=== PATIENT | male | born 1950 | race Caucasian/White ===

== ENCOUNTER 2018-01-12 11:05 | Inpatient (IN) | payer OTHER ==
[~2018-01-12] VITALS: Ht 170.2 cm; Wt 113.4 kg
[~2018-01-12 11:05] MED LIST: ACULAR5 ML OPH; ADVAIR 100-501 EACH INH; ADVAIR DISKU 11 UNIT INH; ASPIRIN EC81 M1 PO; AZITHROMYCIN250 M1 PO; CIPRO500 M1 PO; DIAZEPAM5 M1 PO; DICLOFENAC SODI75 M2 PO; DICYCLOMINE HCL20 M1; DOCUSATE SODIU100 M3 PO; DOK100 M1 PO; FLEXERIL10 MG PO; FLOMAX0.4 M1 PO; FLONASE ALLERG9.9 ML NASB; FLONASE120 SPRAY/ NASB; LEVSIN-SL0.125 MG SL; LIBRAX CAPSULE1 EACH PO; LOPRESSOR 25MG25 MG PO; MEDROL4 M2 PO; METOPROLOL TART25 M1 PO; OMEPRAZOLE40 M1 PO; OXYCODONE-ACET1 EACH PO; PERCOCET 325 MG1 TA2 PO; PREDNISONE 20MG20 MG PO; REGLAN10 M1 PO; TOBRAMYCIN-DEXAM5 ML OPH; VALIUM5 M1 PO; VENTOLIN HFA18 GM INH
--- NOTE | 2018-01-12 11:48 | ED NEURO DEFICIT/STROKE ---
History of Present Illness General Chief Complaint: General Adult Stated Complaint: LEFT HAND AND FACE TINGLING Source: patient, family Exam Limitations: no limitations Allergies Coded Allergies: NO KNOWN ALLERGIES (08/18/16) Reconcile Medications Albuterol Sulfate (Ventolin Hfa) 90 MCG HFA.AER.AD 2 PUF INH Q4-6 PRN PRN SHORTNESS OF BREATH (Reported) Aspirin (Ecotrin*) 81 MG TABLET.DR 1 TAB PO DAILY HEART/BLOOD (Reported) Diazepam 5 MG TABLET 1 TAB PO QHS BLADDER (Reported) Fluticasone Propionate (Flonase Allergy Relief) 50 MCG/ACTUATION SPRAY.SUSP 1 SPRAY NASB BID ALLERGIES (Reported) Fluticasone-Salmeterol (Advair 100-50 Diskus) 100 MCG-50 MCG/DOSE BLST.W.DEV 1 PUF INH BID ASTHMA (Reported) Librax (Librax Capsule) 5 MG-2.5 MG CAPSULE 1-2 CAP PO TID PRN IBS (Reported) Metoprolol Tartrate 25 MG TABLET 0.5 TAB PO BID HEART (Reported) Omeprazole 40 MG CAPSULE.DR 1 CAP PO QAM GI (Reported) Tamsulosin HCl (Flomax) 0.4 MG CAP.ER.24H 2 CAP PO DAILY PROSTATE (Reported) Triage Nurses Notes Reviewed? yes Onset: Abrupt Duration: minute(s): Timing: single episode today Severity: moderate HPI: 67YO MALE with hx of HTN on ASA 81mg, pericarditis x 3 presents to ED complaining of episode of numbness to left hand beginning about 10 minutes prior to arrival, approximately 1045 this AM. Patient also experienced tongue numbness and tingling sensation. His symptoms lasted 10-15 minutes, patient states her symptoms have currently completely resolved. Patient is complaining of mild frontal headache which just started described as 2/10. Patient does report history of right pinky numbness which is been constant for the past month. Patient had a brief episode of chest pain 4 days ago described as central, sharp stabbing pain which resolved after a few minutes. Patient denies visual changes, difficulty with word finding, weakness, abdominal pain, vomiting , fevers. (Karen GRAVES,Delfina Thrasher) Vital Signs & Intake/Output Vital Signs & Intake/Output Vital Signs Date Time Temp Pulse Resp B/P B/P Pulse O2 O2 Flow FiO2 Mean Ox Delivery Rate 01/12 1305 98.5 54 20 128/66 95 Room Air 01/12 1218 98.3 60 18 124/66 95 Room Air 01/12 1131 97.9 64 18 152/85 97 Room Air (Espreanza MATHIS,Lane Campos) Past History Travel History Traveled to [place] past 21 day No Medical History Any Pertinent Medical History? 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 No (Karen GRAVES,Delfina Thrasher) Review of Systems Review of Systems Constitutional: Reports: no symptoms. EENTM: Reports: see HPI. Respiratory: Reports: no symptoms. Cardiovascular: Reports: see HPI. GI: Reports: no symptoms. Genitourinary: Reports: no symptoms. Musculoskeletal: Reports: no symptoms. Skin: Reports: no symptoms. Neurological/Psychological: Reports: see HPI. Hematologic/Endocrine: Reports: no symptoms. Immunologic/Allergic: Reports: no symptoms. All Other Systems: Reviewed and Negative (Delfina Mello) Physical Exam Physical Exam General Appearance: well developed/nourished, no apparent distress, alert, awake Head: atraumatic, normal appearance Eyes: Bilateral: normal appearance, PERRL, EOMI. Ears, Nose, Throat: moist mucous membrane, hearing grossly normal, pharynx normal Neck: normal inspection, supple, full range of motion Respiratory: normal breath sounds, no respiratory distress, lungs clear Cardiovascular: regular rate/rhythm, normal peripheral pulses Peripheral Pulses: 2+ radial (R), 2+ radial (L) Gastrointestinal: normal bowel sounds, soft, non-tender, no organomegaly Back: normal inspection, normal range of motion Extremities: normal range of motion Psychiatric: awake, alert, oriented x 3 Cranial Nerves: normal hearing, normal speech, PERRL, CN II-XII intact Coordination/Gait: normal finger to nose, normal gait Motor/Sensory: no motor/sensory deficits Skin: intact, normal color, warm/dry Core Measures CVA/TIA Diagnosis: Yes NIH Stroke Scale NIH Stroke Scale Response Value Level of Consciousness alert 0 LOC Questions answers both correctly 0 LOC Commands obeys both correctly 0 Best Gaze normal 0 Visual Shipman no visual loss 0 Facial Paresis normal 0 Motor Arm - Left no drift 0 Motor Arm - Right no drift 0 Motor Leg - Left no drift 0 Motor Leg - Right no drift 0 Limb Ataxia no ataxia 0 Sensory normal 0 Best Language no aphasia 0 Dysarthria normal articulation 0 Extinction and Inattention no neglect 0 Total 0 Date Last Known Well: 01/12/18 Time Last Known Well: 1044 Symptom Start Date: 01/12/18 Symptom Start Time: 1044 Reason tPA not ordered Medical Contraindication Swallow Evaluation Pass Swallow eval date 01/12/18 Swallow eval time 1342 Sepsis Present: No Sepsis Focused Exam Completed? No (Karen GRAVES,Delfina Thrasher) Progress Differential Diagnosis: Mata's Palsy, electrolyte imbalance, encephalitis, intracranial Hem., intracranial mass/tumor, stroke, subarachnoid Hem., TIA Diagnostic Imaging: Viewed by Me: CT Scan. Discussed w/RAD: CT Scan. Radiology Impression: PATIENT: TAYA GILBERT PRESENT AGE: 67 PATIENT ACCOUNT NO: [id number] : 52 LOCATION: [facility] ORDERING PHYSICIAN: Delfina GRAVES SERVICE DATE: 01/12/18-1143 EXAM TYPE: CAT - CT HEAD WO IV CONTRAST EXAMINATION: CT HEAD WITHOUT CONTRAST CLINICAL INFORMATION: Left hand and face numbness. COMPARISON: CT scan of the head 06/15/2013. TECHNIQUE: Contiguous axial imaging was performed from the skull base to vertex without intravenous administration of contrast. DLP: 614.25 mGy-cm FINDINGS: There is no evidence of a definite acute intracranial hemorrhage or territorial infarction. There are areas of low-attenuation the periventricular and subcortical white matter, consistent with chronic microvascular ischemic changes. There is a new area of low attenuation in the anterior left gates radiata, consistent with an area of ischemia which is age- indeterminate. No abnormal mass effect or midline shift is seen. Olivera to white matter differentiation is well preserved. No extra-axial fluid collections are identified. The ventricles and sulci are commensurately prominent consistent with mild diffuse volume loss. The osseous structures and soft tissues are normal. There is trace fluid at the right mastoid tip. The study redemonstrates pansinus mucoperiosteal thickening which is most severe in the right maxillary, ethmoid and sphenoid sinuses. IMPRESSION: 1. There are no acute bleeds or territorial infarcts. There is an area of low attenuation in the left anterior gates radiata, consistent with ischemia which is age-indeterminate. 2. There is diffuse volume loss and there are chronic microvascular ischemic changes. 3. 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 DICTATED BY: Konstantin Huerta MD DATE/TIME DICTATED:01/12/181217 CODING CLERK:FREDO DATE/TIME TRANSCRIBED:01/12/181217 CONFIDENTIAL, DO NOT COPY WITHOUT APPROPRIATE AUTHORIZATION. <Electronically signed in Other Vendor System> SIGNED BY: Konstantin Huerta MD 01/12/18 1227 Initial ED EKG: SINUS RHYTHM @61BPM, LVH Prior EKG: unchanged (08/07/16) (Karen GRAVES,Delfina Thrasher) Plan of Care: Orders Procedure Date/time Status Heart Healthy Diet 01/12 D Active Patient Data 01/12 1339 Active Misc Message 01/12 1334 Active ED Holding Orders 01/12 1334 Active Admit to inpatient 01/12 1334 Active Vital Signs 01/12 1334 Active Code Status 01/12 1334 Active TROPONIN LEVEL 01/12 1143 Complete PARTIAL THROMBOPLASTIN TIME 01/12 1143 Complete PROTHROMBIN TIME 01/12 1143 Complete COMPREHENSIVE METABOLIC PANEL 01/12 1143 Complete CBC WITHOUT DIFFERENTIAL 01/12 1143 Complete EKG 01/12 1109 Active Laboratory Tests 01/12/18 1200: Anion Gap 13, Estimated GFR > 60, BUN/Creatinine Ratio 30.0 H, Glucose 125 H, Calcium 8.9, Total Bilirubin 1.2, AST 14 L, ALT 34, Alkaline Phosphatase 37, Troponin I < 0.01, Total Protein 6.5, Albumin 3.8, Globulin 2.7, Albumin/ Globulin Ratio 1.4, PT 11.7, INR 1.07, APTT 30, CBC w Diff NO MAN DIFF REQ, RBC 5.54, MCV 85.8, MCH 28.3, MCHC 32.9 L, RDW 14.4, MPV 8.3, Gran % 72.8, Lymphocytes % 15.3 L, Monocytes % 5.6, Eosinophils % 5.7 H, Basophils % 0.6, Absolute Granulocytes 4.8, Absolute Lymphocytes 1.0 L, Absolute Monocytes 0.4, Absolute Eosinophils 0.4, Absolute Basophils 0 Dr. Mata present to see and evaluate the patient in triage. I evaluated the patient and perform formal neurologic exam and Dr. Mata present to reevaluate the patient. Dr. Mata called a stroke alert. Patient taken to CAT scan. Spoke with Dr. Arguelles regarding this patient - ASA and observation of suspected TIA with further TIA workup. TPA is contraindicated given patient's NIH stroke scale of 0. CT scan is pending. CT scan shows area of likely old ischemia. Patient currently has no neurologic findings on physical exam. Given no evidence of acute intracranial hemorrhage patient was medicated with aspirin 325 mg. Case management recommend full admission for this patient. Dr. Mata spoke with Dr. Perez regarding this patient telemetry admission. (Karen GRAVES,Delfina Thrasher) Comments: 01/12/2018 1:20:25 PM I have discussed this patient's case with Dr. Perez. (Esperanza MATHIS,Lane Campos) Departure Departure Disposition: STILL A PATIENT Condition: Stable Clinical Impression Primary Impression: TIA (transient ischemic attack) Qualifiers: Transient cerebral ischemia type: unspecified Qualified Code: G45.9 - Transient cerebral ischemic attack, unspecified Referrals: Vasquez Norton MD (PCP/Family) Departure Forms: Customer Survey General Discharge Information Admission Note Spoke With: Panfilo Perez MD Documentation of Exam: Documentation of any treatments & extenuating circumstances including Concerns Regarding Discharge (functional status, medication knowledge or non-compliance, living conditions, etc.) that warrant an admission rather than observation: [TIA requiring neurology consult, further workup such as possible MRI, carotid Dopplers, echo, telemetry monitoring, repeat EKGs, repeat labs, premature discharge is unsafe] (Delfina Mello) PA/LICENSED LOAN OFFICER ASSISTANT Co-Sign Statement Statement: ED Attending supervision documentation- [X] I saw and evaluated the patient. I have also reviewed all the pertinent lab results and diagnostic results. I agree with the findings and the plan of care as documented in the PA's/LICENSED LOAN OFFICER ASSISTANT's documentation. Patient presents for evaluation of left facial droop that began prior to arrival. Physical examination reveals no focal neurologic deficit at this time. [] I have reviewed the ED Record and agree with the PA's/LICENSED LOAN OFFICER ASSISTANT's documentation. [] Additions or exceptions (if any) to the PAs/LICENSED LOAN OFFICER ASSISTANT's note and plan are summarized below: [] (Esperanza MATHIS,Lane Campos)
[2018-01-12 12:11] LABS: ABSOLUTE BASOPHIL COUNT 0 /CUMM (0.0-0.2); ABSOLUTE EOSINOPHIL COUNT 0.4 /CUMM (0.0-0.7); ABSOLUTE GRANULOCYTE CT 4.8 /CUMM (1.4-6.5); ABSOLUTE MONOCYTE COUNT 0.4 /CUMM (0.10-0.60); BASOPHIL % 0.6 % (0.0-2.0); EOSINOPHIL % 5.7 % (0-5); GRANULOCYTE % 72.8 % (42.2-75.2); HEMATOCRIT 47.6 % (42-52); MEAN CORPUSCULAR HGB 28.3 PG (27.0-31.0); MEAN CORPUSCULAR HGB CONC 32.9 G/DL (33.0-37.0); MEAN CORPUSCULAR VOLUME 85.8 FL (80.0-94.0); MEAN PLATELET VOLUME 8.3 FL (7.4-10.4); PLATELET COUNT 184 /CUMM (130-400); RBC DISTRIBUTION WIDTH 14.4 % (11.5-14.5); RED BLOOD CELL CT 5.54 /CUMM (4.70-6.10); WHITE BLOOD CELL COUNT 6.5 /CUMM (4.8-10.8)
[2018-01-12 12:19] LABS: PT 11.7 SEC (9.4-12.5); PTT 30 SEC (25-37)
--- NOTE | 2018-01-12 12:27 | CT SCAN REPORT ---
EXAMINATION: CT HEAD WITHOUT CONTRAST CLINICAL INFORMATION: Left hand and face numbness. COMPARISON: CT scan of the head 06/15/2013. TECHNIQUE: Contiguous axial imaging was performed from the skull base to vertex without intravenous administration of contrast. DLP: 614.25 mGy-cm FINDINGS: There is no evidence of a definite acute intracranial hemorrhage or territorial infarction. There are areas of low-attenuation the periventricular and subcortical white matter, consistent with chronic microvascular ischemic changes. There is a new area of low attenuation in the anterior left gates radiata, consistent with an area of ischemia which is age-indeterminate. No abnormal mass effect or midline shift is seen. Olivera to white matter differentiation is well preserved. No extra-axial fluid collections are identified. The ventricles and sulci are commensurately prominent consistent with mild diffuse volume loss. The osseous structures and soft tissues are normal. There is trace fluid at the right mastoid tip. The study redemonstrates pansinus mucoperiosteal thickening which is most severe in the right maxillary, ethmoid and sphenoid sinuses. IMPRESSION: 1. There are no acute bleeds or territorial infarcts. There is an area of low attenuation in the left anterior gates radiata, consistent with ischemia which is age-indeterminate. 2. There is diffuse volume loss and there are chronic microvascular ischemic changes. 3. 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
--- NOTE | 2018-01-12 14:44 | Cons- Neurology ---
General Information and HPI Consulting Request Date of Consult: 01/12/18 Requested By: Panfilo Perez MD Reason for Consult: Sudden numbness in the hand and tongue Source of Information: patient Exam Limitations: no limitations History of Present Illness: This is a pleasant 67-year-old man with known hypertension who today was driving his car when he suddenly felt development of new onset numbness in his hand and tongue on the left side. This persisted for about 15 minutes and then resolved on its own. He spoke to his primary care physician who recommended that he goes to be seen in the emergency room. In the emergency room his NIH stroke scale was 0. Therefore TPA was not given. He has remained stable without any new focal deficits since that point. He denies ever having an event like this or any other neurological symptoms in the past outside of some numbness in his right pinky. Admits to mild headache that is now subsiding too. Allergies/Medications Allergies: Coded Allergies: NO KNOWN ALLERGIES (08/18/16) Home Med List: Albuterol Sulfate (Ventolin Hfa) 90 MCG HFA.AER.AD 2 PUF INH Q4-6 PRN PRN SHORTNESS OF BREATH (Reported) Aspirin (Ecotrin*) 81 MG TABLET.DR 1 TAB PO DAILY HEART/BLOOD (Reported) Diazepam 5 MG TABLET 1 TAB PO QHS BLADDER (Reported) Fluticasone Propionate (Flonase Allergy Relief) 50 MCG/ACTUATION SPRAY.SUSP 1 SPRAY NASB BID ALLERGIES (Reported) Fluticasone-Salmeterol (Advair 100-50 Diskus) 100 MCG-50 MCG/DOSE BLST.W.DEV 1 PUF INH BID ASTHMA (Reported) Librax (Librax Capsule) 5 MG-2.5 MG CAPSULE 1-2 CAP PO TID PRN IBS (Reported) Metoprolol Tartrate 25 MG TABLET 0.5 TAB PO BID HEART (Reported) Omeprazole 40 MG CAPSULE.DR 1 CAP PO QAM GI (Reported) Tamsulosin HCl (Flomax) 0.4 MG CAP.ER.24H 2 CAP PO DAILY PROSTATE (Reported) Current Medications: Current Medications Sig/Vidal Start time Last Medication Dose Route Stop Time Status Admin Aspirin 0 .STK-MED ONE 01/12 1256 DC PO Aspirin 325 MG ONCE ONE 01/12 1245 DC 01/12 PO 01/12 1246 1253 Past History Travel History Traveled to [place] past 21 day No Medical History Neurological: radiculopathy radiculopathy EENT: NONE Cardiovascular: hypertension, pericarditis Respiratory: obstructive sleep apnea Gastrointestinal: GERD Hepatic: NONE Renal: benign prost hyperplasia Musculoskeletal: disk herniation Psychiatric: NONE Endocrine: NONE Blood Disorders: NONE 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 Other Medical Hx: none Surgical History Surgical History: none, lumbar laminectomy in 2015 at L2-3 Psychosocial History Services at Home: Home Health Aide (n/a) Exam & Diagnostic Data Vital Signs and I&O Vital Signs Date Time Temp Pulse Resp B/P B/P Pulse O2 O2 Flow FiO2 Mean Ox Delivery Rate 01/12 1408 98.5 53 20 137/70 97 Room Air 01/12 1305 98.5 54 20 128/66 95 Room Air 01/12 1218 98.3 60 18 124/66 95 Room Air 01/12 1131 97.9 64 18 152/85 97 Room Air Intake & Output 01/12 1600 01/12 0800 01/12 0000 Intake Total 0 Output Total 0 Balance 0 Intake, Oral 0 Output, Urine 0 Patient 235 lb Weight Physical Exam: General: The patient is in no distress. Pleasant and cooperative. MSE: Alert and oriented 3. Good attention and concentration. Good short-term memory and fund of knowledge reflected through our conversation. Language is fluent with good comprehension and repetition. Cardiovascular: S1 and S2 are normal, regular rate and rhythm, and normal pedal pulses. Vision: Fundoscopic exam does not reveal any abnormalties. Visual gonzalez are intact. Neurological: Extra ocular movements intact, AMPARO, face is symmetric, tongue midline, uvula raises equally in the midline, V1-V3 sensation to touch is intact and equal bilaterallty, sternocleidomastoid and trapezius are strong on both sides, muscles of mastication are strong. No dysarthria noted. Motor exam reveals no abnormality of strength. Power is 5-5 throughout the distribution distally and proximally. Sensory exam did not reveal any deficits to touch, temperature, vibration and proprioception. Reflexes are symmetric bilaterally. Cerebellar exam does not reveal any dysmetria. Rapid alternating movements are intact bilaterally. Gait is steady with normal base. Last 48 Hours of Lab Results: Laboratory Tests 01/12 1200 Chemistry Sodium (137 - 145 mmol/L) 144 Potassium (3.5 - 5.1 mmol/L) 4.1 Chloride (98 - 107 mmol/L) 107 Carbon Dioxide (22 - 30 mmol/L) 23 Anion Gap (5 - 16) 13 BUN (9 - 20 mg/dL) 30 H Creatinine (0.7 - 1.2 mg/dL) 1.0 Estimated GFR (>60 ml/min) > 60 BUN/Creatinine Ratio (7 - 25 %) 30.0 H Glucose (65 - 99 mg/dL) 125 H Calcium (8.4 - 10.2 mg/dL) 8.9 Total Bilirubin (0.2 - 1.3 mg/dL) 1.2 AST (17 - 59 U/L) 14 L ALT (21 - 72 U/L) 34 Alkaline Phosphatase (< 127 U/L) 37 Troponin I (<0.11 ng/ml) < 0.01 Total Protein (6.3 - 8.2 g/dL) 6.5 Albumin (3.5 - 5.0 g/dL) 3.8 Globulin (1.9 - 4.2 gm/dL) 2.7 Albumin/Globulin Ratio (1.1 - 2.2 %) 1.4 Coagulation PT (9.4 - 12.5 SEC) 11.7 INR (0.90 - 1.17) 1.07 APTT (25 - 37 SEC) 30 Hematology CBC w Diff NO MAN DIFF REQ WBC (4.8 - 10.8 /CUMM) 6.5 RBC (4.70 - 6.10 /CUMM) 5.54 Hgb (14.0 - 18.0 G/DL) 15.7 Hct (42 - 52 %) 47.6 MCV (80.0 - 94.0 FL) 85.8 MCH (27.0 - 31.0 PG) 28.3 MCHC (33.0 - 37.0 G/DL) 32.9 L RDW (11.5 - 14.5 %) 14.4 Plt Count (130 - 400 /CUMM) 184 MPV (7.4 - 10.4 FL) 8.3 Gran % (42.2 - 75.2 %) 72.8 Lymphocytes % (20.5 - 51.1 %) 15.3 L Monocytes % (1.7 - 9.3 %) 5.6 Eosinophils % (0 - 5 %) 5.7 H Basophils % (0.0 - 2.0 %) 0.6 Absolute Granulocytes (1.4 - 6.5 /CUMM) 4.8 Absolute Lymphocytes (1.2 - 3.4 /CUMM) 1.0 L Absolute Monocytes (0.10 - 0.60 /CUMM) 0.4 Absolute Eosinophils (0.0 - 0.7 /CUMM) 0.4 Absolute Basophils (0.0 - 0.2 /CUMM) 0 Imaging/Other Studies: IMPRESSION: 1. There are no acute bleeds or territorial infarcts. There is an area of low attenuation in the left anterior gates radiata, consistent with ischemia which is age-indeterminate. 2. There is diffuse volume loss and there are chronic microvascular ischemic changes. 3. 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 Assessment/Plan Assessment: This is a 67-year-old man presenting for first-time TIA. His CT is suggestive of extensive microvascular disease and possibly an old subcortical infarct. At the moment he does not have any clear deficits. Recommendations: 1. Obtain MRI brain. 2. Obtain carotid duplex and echo cardiogram. 3. Obtain lipids, TSH, B12, and hemoglobin A1c. 4. Switch aspirin to Plavix. 5. Start atorvastatin 80 mg daily. 6. Sitters starting an LAURIE inhibitor for his blood pressure. 7. Telemetry to rule out atrial fibrillation. YC Consult Acknowledgment - Thank you for your consult request.
--- NOTE | 2018-01-12 15:14 | History & Physical ---
Crystal Christine MD 01/12/18 1514: General Information and HPI MD Statement: I have seen and personally examined TAYA GILBERT and documented this H&P. The patient is a 67 year old M who presented with a patient stated chief complaint of numbness of left hand Source of Information: patient, old records Exam Limitations: no limitations History of Present Illness: This is a 67 year old male with a PMH significant for hypertension, pericarditis ago, not on medication, BPH that comes to us for complaints of 15 minutes of left hand weakness and tongue tingling 10 minutes prior to arrival. The patient states that he was driving and he experienced left hand numbness most in the area of the pinky and tongue tingling. He called Dr. Del Rosario, his PCP who suggested that he come to the ED. The patient states he has never had anything like this in the past. He states on interview that the symptoms have completely resolved. The patient also states that since admission he has had a mild frontal headache and score of 3/10. The patient also states that he has had similar right pinky numbness for about 1 month. The patient also notes that about 4 days back he had a few minutes of sharp central stabbing chest pain. He did nothing at the time and the chest pain resolved. The patient denies any recent or current shortness of breath, vision changes, hearing changes, slurring of speech, confusion, weakness anywhere in the body, loss of consciousness. The patient denies any drinking, smoking, drugs, no allergies. He does not work. He lives with his and family lives nearby, good support system. Allergies/Medications Allergies: Coded Allergies: NO KNOWN ALLERGIES (NONE 01/12/18) Home Med list Albuterol Sulfate (Ventolin Hfa) 90 MCG HFA.AER.AD 2 PUF INH Q4-6 PRN PRN SHORTNESS OF BREATH (Reported) Atorvastatin Calcium 80 MG TABLET 1 TAB PO DAILY Hyperlipidemia Clopidogrel Bisulfate (Plavix) 75 MG TABLET 1 TAB PO DAILY Blood thinner . Diazepam 5 MG TABLET 1 TAB PO QHS BLADDER (Reported) Fluticasone Propionate (Flonase Allergy Relief) 50 MCG/ACTUATION SPRAY.SUSP 1 SPRAY NASB BID ALLERGIES (Reported) Fluticasone-Salmeterol (Advair 100-50 Diskus) 100 MCG-50 MCG/DOSE BLST.W.DEV 1 PUF INH BID ASTHMA (Reported) Librax (Librax Capsule) 5 MG-2.5 MG CAPSULE 1-2 CAP PO TID PRN IBS (Reported) Meloxicam 15 MG TABLET 1 TAB PO DAILY PAIN CONTROL (Reported) Metoprolol Tartrate 25 MG TABLET 0.5 TAB PO BID HEART (Reported) Omeprazole 40 MG CAPSULE.DR 1 CAP PO QAM GI (Reported) Tamsulosin HCl (Flomax) 0.4 MG CAP.ER.24H 2 CAP PO DAILY PROSTATE (Reported) Compliance With Home Meds: GOOD Past History Travel History Traveled to [place] past 21 day No Medical History Neurological: radiculopathy radiculopathy EENT: NONE Cardiovascular: hypertension, pericarditis Respiratory: obstructive sleep apnea Gastrointestinal: GERD Hepatic: NONE Renal: benign prost hyperplasia Musculoskeletal: disk herniation Psychiatric: NONE Endocrine: NONE Blood Disorders: NONE Cancer(s): NONE HOME CARE GIVER/Reproductive: NONE Other Medical Hx: none History of MRSA: No History of VRE: No History of CDIFF: No Surgical History Surgical History: N lumbar laminectomy in 2014 at L2-3 Past Family/Social History Family History Relations & Conditions if any SISTER FH: heart disease MOTHER FH: leukemia FATHER FH: diabetes mellitus Peripheral vascular disease Psychosocial History Where do you live? Home Services at Home: Home Health Aide (n/a) Smoking Status: Never Smoked ETOH Use: denies use Illicit Drug Use: denies illicit drug use Functional Ability ADLs Independent: dressing, eating, toileting, bathing. Ambulation: independent Review of Systems Review of Systems Constitutional: Reports: no symptoms. EENTM: Reports: no symptoms. Cardiovascular: Reports: no symptoms. Respiratory: Reports: no symptoms. GI: Reports: no symptoms. Genitourinary: Reports: see HPI, hesitation. Musculoskeletal: Reports: no symptoms. Skin: Reports: no symptoms. Neurological/Psychological: Reports: see HPI, headache. Hematologic/Endocrine: Reports: no symptoms. Exam & Diagnostic Data Last 24 Hrs of Vital Signs/I&O Vital Signs Date Time Temp Pulse Resp B/P B/P Pulse O2 O2 Flow FiO2 Mean Ox Delivery Rate 01/12 1805 98.2 56 16 169/75 99 Room Air 01/12 1601 98.0 56 16 168/80 98 Room Air 01/12 1408 98.5 53 20 137/70 97 Room Air 01/12 1305 98.5 54 20 128/66 95 Room Air 01/12 1218 98.3 60 18 124/66 95 Room Air 01/12 1131 97.9 64 18 152/85 97 Room Air Intake & Output 01/12 1600 01/12 0800 01/12 0000 Intake Total 0 Output Total 0 Balance 0 Intake, Oral 0 Output, Urine 0 Patient 235 lb Weight Physical Exam General Appearance Alert, Oriented X3, Cooperative, No Acute Distress Skin No Rashes, No Breakdown, No Significant Lesion Skin Temp/Moisture Exam: Warm/Dry Sepsis Skin Exam (color): Normal for Ethnicity HEENT Atraumatic, PERRLA, EOMI, Mucous Membr. moist/pink Neck Supple, No JVD Cardiovascular Regular Rate, Normal S1, Normal S2, No Murmurs Lungs Clear to Auscultation, Normal Air Movement Abdomen Normal Bowel Sounds, Soft, No Tenderness, No Hepatospenomegaly, No Masses Neurological Normal Speech, Strength at 5/5 X4 Ext, Normal Tone, Sensation Intact, Cranial Nerves 3-12 NL, Reflexes 2+ Extremities No Clubbing, No Cyanosis, No Edema, Normal Pulses, No Tenderness/ Swelling Vascular Normal Pulses, Pulses Symmetrical Sepsis Peripheral Pulse Location: Radial Sepsis Peripheral Pulse Exam: Normal Last 24 Hrs of Labs/Chip: Laboratory Tests 01/12/18 1200: Anion Gap 13, Estimated GFR > 60, BUN/Creatinine Ratio 30.0 H, Glucose 125 H, Hemoglobin A1c 5.0, Calcium 8.9, Total Bilirubin 1.2, AST 14 L, ALT 34, Alkaline Phosphatase 37, Troponin I < 0.01, Total Protein 6.5, Albumin 3.8, Globulin 2.7, Albumin/Globulin Ratio 1.4, Vitamin B12 388, TSH 1.460, PT 11.7, INR 1.07, APTT 30, CBC w Diff NO MAN DIFF REQ, RBC 5.54, MCV 85.8, MCH 28.3, MCHC 32.9 L, RDW 14.4, MPV 8.3, Gran % 72.8, Lymphocytes % 15.3 L, Monocytes % 5.6, Eosinophils % 5.7 H, Basophils % 0.6, Absolute Granulocytes 4.8, Absolute Lymphocytes 1.0 L, Absolute Monocytes 0.4, Absolute Eosinophils 0.4, Absolute Basophils 0 Diagnostic Data EKG Results poor r wave progression. q waves seen in 1, avL, V2 Assessment/Plan Assessment: Assessment This is a 67 year old male with a PMH significant for hypertension, pericarditis ago, not on medication, BPH that comes to us for complaints of 15 minutes of left hand weakness and tongue tingling 10 minutes prior to arrival. The patient states that he was driving and he experienced left hand numbness most in the area of the pinky and tongue tingling. The patient denies any recent or current shortness of breath, vision changes, hearing changes, slurring of speech, confusion, weakness anywhere in the body, loss of consciousness. At the time of interview his NIH stroke scale score was 0. EKG showed attentional Q waves in 1 , aVL, V2, not following any specific distribution. Labs were completely normal, troponins negative. Vitals on admission were normal with heart rate of 60 and blood pressure 124/61, 95% oxygen saturation on room air. Head CT done shows no acute bleed or territorial infarct but an area of low attenuation in the left anterior gates radiata consistent with ischemia. Additionally, diffuse volume loss and chronic microvascular ischemic changes. Finally, para-sinus disease most severe on the right side. Of note, the patient is experiencing no sinus pain or pressure. Plan TIA: Patient will be admitted to neuro cardiac unit for cardiac (A. fib) and neuro monitoring Neurochecks every 2 hours Switch aspirin to Plavix as per neurologist Dr. Couch. Patient had previous infarcts as noted on head CT and we can assume that he failed aspirin therapy which he has been on for years. He will likely need Plavix indefinitely. Atorvatatin 80 mg Obtain brain MRI Obtain carotid duplex and echocardiogram Lipid level, TSH, B12, hemoglobin A1c We will hold any blood pressure medication as his blood pressure is stable at 124/61 Speech and swallow: Patient passed bedside swallow so we will order him a heart healthy diet. PT/OT Metoprolol 12.5 twice a day which he takes outpatient BPH: Continue diazepam and Flomax GERD: Continue PPI full code heart healthy diet As Ranked By This Provider Problem List: 1. TIA (transient ischemic attack) Qualifiers Transient cerebral ischemia type: unspecified Qualified Code: G45.9 - Transient cerebral ischemic attack, unspecified 2. BPH (benign prostatic hyperplasia) Core Measures/Misc (06/18) Acute Coronary Syndrome ACS Diagnosis: No Congestive Heart Failure Congestive Heart Failure Diagnosis No Cerebrovascular Accident CVA/TIA Diagnosis: Yes NIH Stroke Scale: Total 0 Date Last Known Well: 01/12/18 Time Last Known Well: 1045 Symptom Start Date: 01/12/18 Symptom Start Time: 104 Reason tPA not ordered Medical Contraindication (nihss 0) Swallow Evaluation Pass Current/Past Hx AFib/AFlutter No VTE (View Protocol) VTE Risk Factors Age>40 No Mechanical VTE Prophylaxis d/t N/A MechProphylax Ordered No VTE Pharm Prophylaxis d/t NA PharmProphylax ordered Sepsis (View protocol) Sepsis Present: No Bambi Sarabia MD 01/12/18 1523: Resident Review Statement Resident Statement: examined this patient, discussed with internet security specialist, agreed with internet security specialist Other Findings: This is a 67 yo male with PMH of hypertension, MCKAYLA, pericarditis, hemilaminectomy, TKA, TURP, who comes in for CC numbness of l. arm and tongue tingling. Pt was driving around in car today around 10:30 am when he felt like his l. arm and tongue went numb with tingling. He called his PCP and son who both suggested that he come to the hospital for further evaluation. He also endorses a headache after he arrived in ED; 3/10 in the frontal area. He has never had a similar presentation before. He does note that his r. 5th digit has been numb for about a month and similar numbness started on his l. thumb as well. No CP, SOB. But does endorse some some sharp chest pain while sitting in the couch 4 days ago. The pain went away by itself. Pt denies any weakness, slurring of speech, or blurry vision. no abd pain, nausea, vomiting, diarrhea. He denies any drinking or smoking. FH significant for sister with ID and father with diabetes His PCP is Dr. Del Rosario and staffing director is Dr. Pablo. PE: HEENT: Pupils equal and reactive. EOMI Cardiovascular: Nml s1/s2; no murmurs Skin: no erythema, rash or wounds present. Respiratory:CTAB GI: BSX4, No tenderness on palpation. Obese EXT: no swelling in bilat LE. Neuro: CN 2-12 WNL. Strength 5/5 in all ext. Nml sensation. Negative [place], or cerebellar signs. No speech difficulty and able to ambulate normally. ASSESSMENT: PLAN: 1. TIA: NIH score 0. He does not meet criteria for TPA. CT was not indicative of acute infarct. He does not have any residual deficits on physical exam. Will proceed with stroke work up. Passed bedside swallow * mri * carotid duplex * tsh * b12 * a1c * Will switch asa to plavix per neuro * stain * lipid panel * echo * PT/OT * appreciate neuro consult * Will allow permissive htn Parasinus disease: CT shows diffuses parasinus disease r>l. * Fluticasone BPH * Pt takes valium 5mg daily for bladder relaxation. Will con't therapy. CAD: * Con't home metoprolol starting tomorrow FC DIET Chem ppx Panfilo Perez 01/12/18 1606: Attending MD Review Statement Attending Statement Attending MD Statement: examined this patient, discuss w/resident/PA/TRANSITION COACH, agreed w/resident/PA/TRANSITION COACH, discussed with family, reviewed EMR data (avail), discussed with nursing, discussed with case mgmt, reviewed images, amended to note Attending Assessment/Plan: Patient presents wit left hand numbness and tongue numbness. Patient admitted to telemetry for TIA r/o stroke. Stroke core measures. NIHSS 0. Frequent neurochecks, neurology appreciated. Work up as above. GI/dvt prophyalxis
--- NOTE | 2018-01-12 19:49 | MRI REPORT ---
EXAMINATION: MR BRAIN WITHOUT CONTRAST CLINICAL INFORMATION: Left-sided weakness and slurred speech. Rule out stroke. COMPARISON: Head CT from 01/12/2018. TECHNIQUE: Multiplanar, multisequence imaging of the brain was performed without contrast. FINDINGS: No diffusion abnormalities are identified to suggest an acute infarct. The ventricles are normal in size. No mass effect or midline shift is seen. Mild chronic white matter microangiopathic changes are noted. There is a small chronic infarct in the left frontal white matter. No extra-axial fluid collections are seen. The brainstem and cerebellum are normal. The gradient refocused acquisition is normal. The craniovertebral junction, marrow signal, and midline structures are normal. The major intracranial flow voids at the level of the [place] are preserved. The dural venous sinus flow voids are maintained. The mastoid air cells are well aerated. There is moderate mucosal thickening in the right sphenoid sinus and mild to moderate mucosal disease in the ethmoid sinus air cells. Mild mucosal thickening lines the petit of the maxillary sinuses. There is very mild left frontal sinus mucosal thickening as well. IMPRESSION: No acute infarct. Mild chronic white matter microangiopathy. Small chronic left frontal lobe infarct. Mild to moderate mucosal thickening in the paranasal sinuses, more so affecting the ethmoid air cells and right sphenoid sinus.
[2018-01-12 21:04] VITALS: BP 140/82
[2018-01-13 07:00] VITALS: BP 138/60
[2018-01-13 08:01] LABS: ABSOLUTE BASOPHIL COUNT 0 /CUMM (0.0-0.2); ABSOLUTE EOSINOPHIL COUNT 0.4 /CUMM (0.0-0.7); ABSOLUTE GRANULOCYTE CT 4.1 /CUMM (1.4-6.5); ABSOLUTE LYMPH COUNT 1.2 /CUMM (1.2-3.4); ABSOLUTE MONOCYTE COUNT 0.5 /CUMM (0.10-0.60); BASOPHIL % 0.5 % (0.0-2.0); EOSINOPHIL % 6.7 % (0-5); GRANULOCYTE % 65.7 % (42.2-75.2); HEMATOCRIT 44.2 % (42-52); MEAN CORPUSCULAR HGB CONC 33.9 G/DL (33.0-37.0); MEAN CORPUSCULAR VOLUME 85.7 FL (80.0-94.0); MEAN PLATELET VOLUME 8.7 FL (7.4-10.4); PLATELET COUNT 160 /CUMM (130-400); RBC DISTRIBUTION WIDTH 14.3 % (11.5-14.5); RED BLOOD CELL CT 5.15 /CUMM (4.70-6.10); WHITE BLOOD CELL COUNT 6.2 /CUMM (4.8-10.8)
--- NOTE | 2018-01-13 09:01 | PN- Housestaff ---
Cornell MATHIS,Bambi 01/13/18 0901: Subjective Follow-up For: tia Subjective: Saw pt at bedside this AM. No acute overnight events or complaints. Denies any further episodes of tingling or numbness. He states he is in his usual state of health. Review of Systems Constitutional: Reports: no symptoms. EENTM: Denies: blurred vision. Cardiovascular: Denies: chest pain, palpitations. Respiratory: Denies: cough, short of breath. Gastrointestinal: Denies: bloating, constipation. Genitourinary: Reports: no symptoms. Musculoskeletal: Reports: no symptoms. Skin: Reports: no symptoms. Objective Last 24 Hrs of Vital Signs/I&O Vital Signs Date Time Temp Pulse Resp B/P B/P Pulse O2 O2 Flow FiO2 Mean Ox Delivery Rate 01/13 1051 68 146/80 01/13 0800 Room Air 01/13 0700 97.7 53 20 138/60 93 01/12 2232 48 152/82 01/12 2232 48 152/82 01/12 2104 97.9 56 20 140/82 98 Room Air 01/12 2020 98.1 55 18 152/70 95 Room Air 01/12 1805 98.2 56 16 169/75 99 Room Air 01/12 1601 98.0 56 16 168/80 98 Room Air 01/12 1408 98.5 53 20 137/70 97 Room Air 01/12 1305 98.5 54 20 128/66 95 Room Air Intake & Output 01/13 1600 01/13 0800 01/13 0000 Intake Total Output Total 250 50 Balance -250 -50 Output, Urine 250 50 Patient 113.426 kg Weight Weight Bed scale Measurement Method Physical Exam General Appearance: Alert, Oriented X3, Cooperative, No Acute Distress Skin: No Significant Lesion HEENT: Atraumatic, PERRLA, Mucous Membr. moist/pink Neck: Supple Cardiovascular: Regular Rate, Normal S1, Normal S2, No Murmurs Lungs: Normal Air Movement Abdomen: Soft, No Tenderness Extremities: No Edema Current Medications: Current Medications Sig/Vidal Start time Last Medication Dose Route Stop Time Status Admin Acetaminophen 650 MG Q6P PRN 01/12 1500 AC PO Aspirin 0 .STK-MED ONE 01/12 1256 DC PO Aspirin 325 MG ONCE ONE 01/12 1245 DC 01/12 PO 01/12 1246 1253 Aspirin Buffered 81 MG DAILY 01/13 0900 CAN PO Atorvastatin Calcium 80 MG 1700 01/12 1700 AC 01/12 PO 1815 Clopidogrel Bisulfate 0 .STK-MED ONE 01/12 1757 DC PO Clopidogrel Bisulfate 75 MG DAILY 01/12 1708 AC 01/13 PO 1052 Diazepam 5 MG AT BEDTIME 01/12 2100 AC 01/12 PO 2206 Enoxaparin Sodium 40 MG DAILY 01/13 0900 AC 01/13 SC 1052 Fluticasone 2 SPRAY DAILY PRN 01/12 1715 AC Propionate DRAKE Ibuprofen 600 MG Q6P PRN 01/12 1500 AC PO Metoprolol Tartrate 12.5 MG BID 01/13 0900 DC PO Metoprolol Tartrate 12.5 MG BID 01/12 2230 AC 01/13 PO 1051 Omeprazole 40 MG DAILY AC 01/13 0700 AC 01/13 PO 0600 Oxycodone/ 2 TAB Q6P PRN 01/12 1500 AC Acetaminophen PO Tamsulosin HCl 0.8 MG DAILY 01/13 0900 DC PO Tamsulosin HCl 0.8 MG AT BEDTIME 01/12 2230 AC 01/12 PO 2232 Last 24 Hrs of Lab/Chip Results Last 24 Hrs of Labs/Mics: Laboratory Tests 01/13/18 0615: Anion Gap 10, Estimated GFR > 60, BUN/Creatinine Ratio 31.0 H, Total Bilirubin 1.2, Direct Bilirubin 0.5 H, AST 12 L, ALT 30, Alkaline Phosphatase 35, Total Protein 5.9 L, Albumin 3.3 L, Triglycerides 51, Cholesterol 131, LDL Cholesterol, Calc 80, HDL Cholesterol 41, Cholesterol/HDL Ratio 3, CBC w Diff NO MAN DIFF REQ, RBC 5.15, MCV 85.7, MCH 29.0, MCHC 33.9, RDW 14.3, MPV 8.7, Gran % 65.7, Lymphocytes % 19.8 L, Monocytes % 7.3, Eosinophils % 6.7 H, Basophils % 0.5, Absolute Granulocytes 4.1, Absolute Lymphocytes 1.2, Absolute Monocytes 0.5 , Absolute Eosinophils 0.4, Absolute Basophils 0 Assessment/Plan Assessment: ASSESSMENT: This is a 67 yo male with PMH of hypertension, MCKAYLA, pericarditis, hemilaminectomy, TKA, TURP, who comes in for CC numbness of l. arm and tongue tingling. He was admitted for work up of TIA. Imaging shows no acute bleed or territorial infarct but an area of low attenuation in the left anterior gates radiata consistent with ischemia. Pt has no residual deficits. NIH score 0. PLAN: 1. TIA: NIH score 0. He does not meet criteria for TPA. CT was not indicative of acute infarct. He does not have any residual deficits on physical exam. Will proceed with stroke work up. Passed bedside swallow. MRI shows chronic white matter microangiopathy and small chronic l. frontal lobe infarct with some mod mucosal thickening in l. paranasal sinuses. DELANEY, B 12, A1C WNL. * carotid duplex * Will switch asa to plavix per neuro * statin * echo * PT/OT * appreciate neuro consult Parasinus disease: CT shows diffuses parasinus disease r>l. * Fluticasone BPH * Pt takes valium 5mg daily for bladder relaxation. Will con't therapy. CAD: * Con't home metoprolo Problem List: 1. TIA (transient ischemic attack) Pain Ratin Pain Location: none Pain Goal: Remain pain free Pain Plan: none Tomorrow's Labs & Rationales: none Jessica Menendez MD 01/13/18 1708: Attending MD Review Statement Attending Statement Attending MD Statement: examined this patient, discuss w/resident/PA/SECURITY GUARD, agreed w/resident/PA/SECURITY GUARD, reviewed EMR data (avail) Attending Assessment/Plan: 67M PMH HTN, GERD admitted for left hand paresthesia and tongue paresthesia, resolved after 3 minutes, with normal CT head and MRI head showing chronic left frontal infarct but nothing acute. No telemetry events. Carotid doppler normal. Patient is asymptomatic today with normal neuro exam. He is stable for discharge home. Will discontinue ASA, start Plavix, start Atorvastatin, continue home medications, follow up with cardioogy as outpatient.
--- NOTE | 2018-01-13 09:10 | ULTRASOUND REPORT ---
EXAMINATION: US DUPLEX CAROTID AND VERTEBRAL CLINICAL INFORMATION: 67-year-old male with slurring of speech and left-sided weakness. COMPARISON: None TECHNIQUE: Real-time ultrasound and Doppler techniques (integrating B-mode 2D vascular images, Doppler spectral analysis and color flow Doppler imaging) were utilized to interrogate the extracranial carotid and vertebral arteries bilaterally. The degree of stenosis determined by criteria similar to NASCET. FINDINGS: No plaque is seen at the carotid bifurcations or within the internal carotid arteries. All velocities are within normal limits as follows: Right: The common carotid artery velocity is 103 cm/s. The internal carotid artery velocities are 44 cm/s systolic and 15 cm/s diastolic. The external carotid artery velocity is 71 cm/s. Left: The common carotid artery velocity is 128 cm/s. The internal carotid artery velocities are 77 cm/s systolic and 20 cm/s diastolic. The external carotid artery velocity is 77 cm/s. ADDITIONAL FINDINGS: 1. The vertebral arteries show antegrade flow. 2. No significant stenosis in the external carotid arteries. IMPRESSION: No evidence of a hemodynamically significant stenosis involving the internal carotid arteries.
[2018-01-13 10:51] VITALS: BP 146/80
[2018-01-13] MEDS ORDERED: MELOXICAM15 M1 PO (13:19)
--- NOTE | 2018-01-13 14:55 | Discharge Summary ---
Hospital Course Allergies: Coded Allergies: NO KNOWN ALLERGIES (NONE 01/12/18) Discharge Instructions Medications at Discharge Discharge Medications: Continue taking these medications: Tamsulosin HCl (Flomax) 0.4 MG CAP.ER.24H 2 Capsule ORAL DAILY Omeprazole (Omeprazole) 40 MG CAPSULE.DR 1 Capsule ORAL Every Morning Aspirin (Ecotrin*) 81 MG TABLET.DR 1 Tablet ORAL DAILY Diazepam (Diazepam) 5 MG TABLET 1 Tablet ORAL TAKE AT BEDTIME Qty = 60 Librax (Librax Capsule) 5 MG-2.5 MG CAPSULE 1-2 Capsule ORAL THREE TIMES DAILY as needed for IBS Metoprolol Tartrate (Metoprolol Tartrate) 25 MG TABLET 0.5 Tablet ORAL TWICE DAILY Fluticasone-Salmeterol (Advair 100-50 Diskus) 100 MCG-50 MCG/DOSE BLST.W.DEV 1 Puff Inhale through mouth TWICE DAILY Fluticasone Propionate (Flonase Allergy Relief) 50 MCG/ACTUATION SPRAY.SUSP 1 [place] Both sides of nose TWICE DAILY Albuterol Sulfate (Ventolin Hfa) 90 MCG HFA.AER.AD 2 Puff Inhale through mouth EVERY 4-6 HOURS NEEDED as needed for SHORTNESS OF BREATH Meloxicam (Meloxicam) 15 MG TABLET 1 Tablet ORAL DAILY Qty = 30
[2018-01-13] MEDS ORDERED: PLAVIX75 M1 PO ×3 (14:57→15:32)
--- NOTE | 2018-01-13 15:01 | Patient Discharge Instructions ---
Discharge Instructions General Discharge Information You were seen/treated for: TIA Watch for these problems: Lightheadedness, numbness, tingling, weakness in any part of body and loss of consciousness. If experience any of these symptoms please come to ED or call your primary care physician Special Instructions: Follow-up with your primary care physician in one week. Follow-up with neurology in 1 week Don't take Plavix with PPI Diet Recommended Diet: Regular Activity Activity Self Limited: Yes Acute Coronary Syndrome Inclusion Criteria At DC or during hospital stay patient has or had the following: ACS DIAGNOSIS No Discharge Core Measures Meds if any: Prescribed or Continued at Discharge Meds if any: NOT Prescribed or Continued at Discharge Congestive Heart Failure Inclusion Criteria At DC or during hospital stay patient has or had the following: CHF DIAGNOSIS No Discharge Core Measures Meds if any: Prescribed or Continued at Discharge Meds if any: NOT Prescribed or Continued at Discharge Cerebrovascular accident Inclusion Criteria At DC or during hospital stay patient has or had the following: CVA/TIA Diagnosis Yes Discharge Core Measures Meds if any: Prescribed or Continued at Discharge Antithrombotic Yes Statin (required if LDL =>70) Yes Meds if any: NOT Prescribed or Continued at Discharge Venous thromboembolism Inclusion Criteria VTE Diagnosis No VTE Type NONE VTE Confirmed by (Test) NONE Discharge Core Measures - Per Current guidelines, there needs to be overlap - treatment for the first 5 days of Warfarin therapy. - If discharged on Warfarin prior to 5 days of - overlap therapy, the patient will need to be - assessed for post discharge needs including - *Post discharge parental anticoagulation - *Warfarin and/or parental anticoagulation education - *Follow up date to check INR post discharge At least 5 days overlap therapy as Inpatient No Meds if any: Prescribed or Continued at Discharge Note: Overlap Therapy is Warfarin and Anticoagulant Meds if any: NOT Prescribed or Continued at Discharge
[2018-01-13] MEDS ORDERED: ATORVASTATIN CA80 M1 PO ×2 (15:07→15:32)
--- NOTE | 2018-01-14 11:11 | ECHOCARDIOGRAM REPORT ---
TAYA GILBERT Age: 67 : 1950 Gender: M Exam Date: 01/13/2018 13:31 Exam Location: [address] Ht (in): 67 Wt (lb): 250 BSA: 2.37 BP: 138 / 60 Ordering Physician: Vandana Sarabia MD Referring Physician: Skinny Pablo MD Technologist: Dakota Otto [facility] Room Number: 174-1 Indications: STROKE, TIA Rhythm: Sinus Technical Quality: Fair, Technically difficult study FINDINGS Left Ventricle Normal size left ventricle. No obvious regional wall motion abnormalities. . Normal left ventricular ejection fraction estimated at 55-60%. Right Ventricle Right ventricle not well visualized, grossly normal. Right Atrium Normal right atrial size. Left Atrium Mild left atrial dilatation. Mitral Valve Mitral valve thickened. Mild mitral regurgitation. Aortic Valve Trileaflet aortic valve. Diffuse thickening (sclerosis) of the aortic valve cusps without reduced excursion. No aortic stenosis. Mild aortic regurgitation. Tricuspid Valve Tricuspid valve not well visualized, grossly normal. Trace tricuspid regurgitation. Pulmonic Valve Pulmonic valve not well visualized, grossly normal. Pericardium No pericardial effusion. Great Vessels Normal size aortic root and proximal ascending aorta. CONCLUSIONS 1. THis was a technically difficult examination. 2. Aortic sclerosis is present with mild aortic insufficiency. 3. Mitral leaflet thickening is present with mild mitral insufficiency and mild left arial enlargement. 4. There is no signfiicant pericardial fluid detected. 5. The left ventricular chamber size and systolic function appear normal with no visible resting wall motion abnormalities. 6. Minimal tricuspid insufficiency is present with no evidence of pulmonary hypertension. Skinny Pablo M.D. (Electronically Signed) Final Date: 14 January 2018 11:11 MEASUREMENTS (Male / Female) Normal Values 2D ECHO LV Diastolic Diameter PLAX 4.9 cm 4.2 - 5.9 / 3.9 - 5.3 cm LV Systolic Diameter PLAX 3.4 cm 2.1 - 4.0 cm LV Fractional Shortening PLAX 30.6 % 25 - 46 % LV Ejection Fraction 2D Teich 58.0 % IVS Diastolic Thickness 1.1 cm LVPW Diastolic Thickness 1.1 cm LV Relative Wall Thickness 0.4 RV Internal Dim ED PLAX 3.5 cm 1.9 - 3.8 cm LVOT Diameter 2.2 cm Aortic Root Diameter 3.7 cm LA Systolic Diameter LX 4.0 cm 3.0 - 4.0 / 2.7 - 3.8 cm RVOT Diameter 2.8 cm 2.5 - 2.9 cm LA Volume 70.0 cm 18 - 58 / 22 - 52 cm RV Diastolic Area 6.2 cm 11 - 28 cm Ascending Aorta Diameter 3.7 cm DOPPLER AV Peak Velocity 147.0 cm/s AV Peak Gradient 8.6 mmHg AV Mean Velocity 96.3 cm/s AV Mean Gradient 4.0 mmHg AV Velocity Time Integral 29.8 cm LVOT Peak Velocity 126.0 cm/s LVOT Peak Gradient 6.4 mmHg LVOT Mean Velocity 79.6 cm/s LVOT Mean Gradient 3.0 mmHg LVOT Velocity Time Integral 25.8 cm LVOT Stroke Volume 98.1 cm AV Area Cont Eq vti 3.3 cm AV Area Cont Eq pk 3.3 cm MV Peak Velocity 97.2 cm/s MV Peak Gradient 3.8 mmHg MV Mean Velocity 58.9 cm/s MV Mean Gradient 2.0 mmHg Mitral E Point Velocity 82.8 cm/s Mitral A Point Velocity 82.8 cm/s Mitral E to A Ratio 1.0 MV PHT Velocity 93.0 cm/s MV Deceleration [place] 296.0 cm/s MV Pressure Half Time 94.3 ms MV Area PHT 2.3 cm MV Deceleration Time 254.0 ms TV Peak Velocity 239.0 cm/s TV Peak E Velocity 57.0 cm/s TV Peak A Velocity 53.0 cm/s TV E to A Ratio 1.1 Right Atrial Pressure 5.0 mmHg PV Peak Velocity 120.0 cm/s PV Peak Gradient 5.8 mmHg PV Mean Velocity 87.4 cm/s PV Mean Gradient 3.0 mmHg PV Velocity Time Integral 27.0 cm QpQs Shunt Ratio 0.9 PV Area Cont Eq vti 3.4 cm PV Area Cont Eq pk 3.4 cm LV E' Lateral Velocity 7.7 cm/s Mitral E to LV E' Lateral Ratio 10.8 LV E' Septal Velocity 6.8 cm/s Mitral E to LV E' Septal Ratio 12.1
== END 2018-01-13 16:39 | DRG 69 ==
LOC: ERH 11:05 → ERHI 13:34 → 1NO 13:34 → ENRESERV 19:31 → ENTRNSPT 20:09 → EDTRNSPTSTS 20:13 → 1NO 20:23 → CMPTRNSPT 20:36 → 1NO 01-13 16:39
PROVIDERS: Physician Assistant; Student in an Organized Health Care Education/Training Program
DX: G45.9 Transient cerebral ischemic attack, unspecified (principal); G47.33 Obstructive sleep apnea (adult) (pediatric); I10 Essential (primary) hypertension; M54.10 Radiculopathy, site unspecified; K21.9 Gastro-esophageal reflux disease without esophagitis; N40.0 Benign prostatic hyperplasia without lower urinary tract symptoms; Z98.890 Other specified postprocedural states
CPT/HCPCS: 1NSP; 70551; 36592; 82436; 93005; 93010; 93306; 97116-GO; 97161-GP; 97530-GO; J1650

== ENCOUNTER 2018-02-15 09:54 | Emergency (ER) | payer OTHER ==
[~2018-02-15] VITALS: Ht 170.2 cm; Wt 112.9 kg
[~2018-02-15 09:54] MED LIST changes: +ATORVASTATIN CA80 M1 PO; +MELOXICAM15 M1 PO; +PLAVIX75 M1 PO
--- NOTE | 2018-02-15 11:30 | ED DYSPNEA/ASTHMA COMPLAINT ---
History of Present Illness General Chief Complaint: Wheezing/Asthma Stated Complaint: COUGHING/WHEEZING Source: patient, old records Exam Limitations: no limitations Vital Signs & Intake/Output Vital Signs & Intake/Output Vital Signs Date Time Temp Pulse Resp B/P B/P Pulse O2 O2 Flow FiO2 Mean Ox Delivery Rate 02/15 1243 67 18 119/74 96 Room Air 02/15 1225 99 Room Air 02/15 1216 98 02/15 1010 97.0 62 18 129/75 99 Room Air Allergies Coded Allergies: NO KNOWN ALLERGIES (NONE 01/12/18) Reconcile Medications Albuterol Sulfate (Ventolin Hfa) 90 MCG HFA.AER.AD 2 PUF INH Q4-6 PRN PRN SHORTNESS OF BREATH (Reported) Atorvastatin Calcium 80 MG TABLET 1 TAB PO DAILY Hyperlipidemia Clopidogrel Bisulfate (Plavix) 75 MG TABLET 1 TAB PO DAILY Blood thinner . Codeine Phosphate/Guaifenesi (Guaifen-Codeine 100-10 MG/5 Ml) 10 MG-100 MG/5 ML LIQUID 10 ML PO Q6HR PRN COUGH Diazepam 5 MG TABLET 1 TAB PO QHS BLADDER (Reported) Fluticasone Propionate (Flonase Allergy Relief) 50 MCG/ACTUATION SPRAY.SUSP 1 SPRAY NASB BID ALLERGIES (Reported) Hyoscyamine (Levsin) 0.125 MG TABLET 1 TAB PO QPM GI (Reported) Meloxicam 15 MG TABLET 1 TAB PO DAILY PAIN CONTROL (Reported) Methylprednisolone. (Medrol) 4 MG TAB.DS.PK 1 DP PO AD asthma 6 on day 1 then reduce by one tablet daily until gone Metoprolol Tartrate 25 MG TABLET 1 TAB PO DAILY HEART (Reported) Metoprolol Tartrate 25 MG TABLET 0.5 TAB PO QPM HEART (Reported) Omeprazole 40 MG CAPSULE.DR 1 CAP PO QAM GI (Reported) Tamsulosin HCl (Flomax) 0.4 MG CAP.ER.24H 2 CAP PO DAILY PROSTATE (Reported) Triage Note: PT TO ER C/C PRIMARILY DRY COUGH X 4 DAYS SINCE MOWING LAWN. STATES, "WHEN I GET A COUGH LIKE THIS ITS USUALLY MY ASTHMA". STATES RESCUE INH NOT HELPING. Triage Nurses Notes Reviewed? yes Onset: Abrupt Duration: day(s): (4), intermittent, waxing and waning Timing: recent history Severity: mild Activities at Onset: none Prior Episodes/Possible Cause: occasional episodes Associated Symptoms: denies HPI: 67-year-old male with history of asthma and neuropathy hypertension presents to ER complaining of a 4 day history of nonproductive cough and wheezing that began after mowing his lawn. He reports similar episodes in the past he's been using his Ventolin inhaler without improvement. No fever no chills. He denies any shortness of breath at this time no leg swelling no recent immobility patient states he's had similar episodes in the past for which he has required a breathing treatment which he states his why he came today. (Chacho Reyes) Past History Travel History Traveled to [place] past 21 day No Medical History Any Pertinent Medical History? 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 No (Chacho Reyes) Review of Systems Review of Systems Constitutional: Reports: see HPI. Comments Review of systems: See HPI, All other systems negative. Constitutional, no chills no fever HEENT: no sore throat no congestion Cardiovascular: No chest pain Skin: no rashes, no change in skin Respiratory: see hpi GI: No nausea no vomiting, no diarrhea, : No dysuria No hematuria, no frequency Muscle skeletal: No joint pain, no back pain Neurologic: , no headache Heme/endocrine: No bruising (Chacho Reyes) Physical Exam Physical Exam General Appearance: well developed/nourished, no apparent distress, alert, awake Respiratory: wheezing Comments: Well-developed well-nourished patient in no apparent distress. HEENT: Atraumatic, extraocular motion intact Neck: Supple, FROM Back: FROM Cardiovascular: Regular rate and rhythms no murmurs rubs Respiratory: Chest nontender.There were no bony deformities, no asymmetry. No respiratory distress. Patient speaking in full complete sentences. Intermittent wheezing no rhonchi no rales Extremities: full range of motion Neuro: awake, alert, and oriented to person, place and time. There were no obvious focal neurologic abnormalities. Skin: Warm & dry;No appreciable rash on exposed skin Psych: Mood affect normal, normal memory normal judgment. Core Measures ACS in differential dx? No CVA/TIA Diagnosis No Sepsis Present: No Sepsis Focused Exam Completed? No (Chacho Reyes) Progress Differential Diagnosis: asthma, bronchitis, COPD, pneumonia Plan of Care: Current Medications Sig/Vidal Start time Last Medication Dose Stop Time Status Admin Albuterol Sulfate 3 ML ONCE ONE 02/15 1145 UNVr (Proventil) 02/15 1146 Ipratropium Krebs 2.5 ML ONCE ONE 02/15 1145 UNVr (Atrovent) 02/15 1146 Prednisone 60 MG ONCE ONE 02/15 1145 UNVr 02/15 1146 Patient speaking in full complete sentences in no acute distress at this time breathing treatment ordered Patient feeling significantly improved after treatment on repeat auscultation noted resolution of wheezing I discussed the plan of care he feels comfortable plan to discharge at this time return precautions were discussed at length Initial ED EKG: none (Chacho Reyes) Departure Departure Time of Disposition: 1228 Disposition: HOME OR SELF CARE Condition: Stable Clinical Impression Primary Impression: Asthma Referrals: Errol MATHIS,Vasquez Munguia (PCP/Family) Additional Instructions: Medrol Dosepak as directed. guaifensin with codeine for cough- use caution as this may make you drowsy. these were sent to the [facility]. follow up with your pmd this week, return with any concerns Departure Forms: Customer Survey General Discharge Information Prescriptions: Current Visit Scripts Methylprednisolone. (Medrol) 1 DP PO AD #1 DP 6 on day 1 then reduce by one tablet daily until gone Codeine Phosphate/Guaifenesi (Guaifen-Codeine 100-10 MG/5 Ml) 10 ML PO Q6HR PRN COUGH #150 ML (Chacho Reyes) PA/SYSTEMS SOFTWARE DESIGNER Co-Sign Statement Statement: ED Attending supervision documentation- [X] I saw and evaluated the patient. I have also reviewed all the pertinent lab results and diagnostic results. I agree with the findings and the plan of care as documented in the PA's/SYSTEMS SOFTWARE DESIGNER's documentation. [X] I have reviewed the ED Record and agree with the PA's/SYSTEMS SOFTWARE DESIGNER's documentation. [] Additions or exceptions (if any) to the PAs/SYSTEMS SOFTWARE DESIGNER's note and plan are summarized below: [] (Daniela MATHIS,Pradeep Handy) Critical Care Note Critical Care Note Critical Care Time: non-applicable (Chacho Reyes)
[2018-02-15] MEDS ORDERED: LEVSIN0.125 M1 PO (11:44)
[2018-02-15] MEDS ORDERED: METOPROLOL TART25 M1 PO (11:46)
[2018-02-15] MEDS ORDERED: MEDROL4 M2 PO (12:30)
[2018-02-15] MEDS ORDERED: GUAIFEN-CODEIN118 M1 PO (12:30)
[2018-02-15 12:43] VITALS: BP 119/74
== END 2018-02-15 13:20 ==
LOC: ERH 09:54
DX: J45.909 Unspecified asthma, uncomplicated (principal)
CPT/HCPCS: 1263

== ENCOUNTER 2018-03-12 11:41 | Emergency (ER) | payer OTHER ==
[~2018-03-12] VITALS: Ht 170.2 cm; Wt 127.0 kg
[~2018-03-12 11:41] MED LIST changes: +GUAIFEN-CODEIN118 M1 PO; +LEVSIN0.125 M1 PO
[2018-03-12 11:46] VITALS: BP 133/74
[2018-03-12] MEDS ORDERED: LIPITOR80 M1 PO (12:51)
--- NOTE | 2018-03-12 13:41 | ED HAND/WRIST INJURY COMPLAINT ---
History of Present Illness General Chief Complaint: General Adult Stated Complaint: PER PT"I NEED MY L HAND THUMB FINGER DRAINED" Source: patient Exam Limitations: no limitations Vital Signs & Intake/Output Vital Signs & Intake/Output Vital Signs Date Time Temp Pulse Resp B/P B/P Pulse O2 O2 Flow FiO2 Mean Ox Delivery Rate 03/12 1146 98.0 60 20 133/74 96 Room Air Allergies Coded Allergies: NO KNOWN ALLERGIES (NONE 01/12/18) Reconcile Medications Albuterol Sulfate (Ventolin Hfa) 90 MCG HFA.AER.AD 2 PUF INH Q4-6 PRN PRN SHORTNESS OF BREATH (Reported) Atorvastatin Calcium (Lipitor) 80 MG TABLET 1 TAB PO QPM CHOLESTEROL ( Reported) Clopidogrel Bisulfate (Plavix) 75 MG TABLET 1 TAB PO DAILY Blood thinner . Fluticasone Propionate (Flonase Allergy Relief) 50 MCG/ACTUATION SPRAY.SUSP 1 SPRAY NASB BID PRN ALLERGIES (Reported) Hyoscyamine (Levsin) 0.125 MG TABLET 1 TAB PO QPM GI (Reported) Meloxicam 15 MG TABLET 1 TAB PO DAILY PAIN CONTROL (Reported) Metoprolol Tartrate 25 MG TABLET 1 TAB PO DAILY HEART (Reported) Metoprolol Tartrate 25 MG TABLET 0.5 TAB PO QPM HEART (Reported) Omeprazole 40 MG CAPSULE.DR 1 CAP PO QAM GI (Reported) Tamsulosin HCl (Flomax) 0.4 MG CAP.ER.24H 2 CAP PO QPM PROSTATE (Reported) Triage Note: PT TO ED C/O BRUISING UNDER LEFT THUMB NAIL S/P HITTING IT WITH HAMMER YESTERDAY. Triage Nurses Notes Reviewed? yes Occurred: last week Duration: day(s): Timing: recent history Injury Environment: home Severity: moderate Pain/Injury Location: Left: 1st finger. Context: crush HPI: 67-year-old male presents to emergency department complaining of pain to left thumb following injury last week. Patient states that he was doing work around his house when he accidentally hit left thumb with a hammer. Patient reports bruising under the nail and increasing pain. He states he has had this before and had it drained. Patient denies numbness, tingling, bleeding, difficulty with range of motion. (Karen GRAVES,Delfina Thrasher) Past History Travel History Traveled to [place] past 21 day No Medical History Any Pertinent Medical History? 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 No (Delfina Mello) Review of Systems Review of Systems Constitutional: Reports: no symptoms. EENTM: Reports: no symptoms. Respiratory: Reports: no symptoms. Cardiovascular: Reports: no symptoms. GI: Reports: no symptoms. Genitourinary: Reports: no symptoms. Musculoskeletal: Reports: see HPI. Skin: Reports: see HPI. Neurological/Psychological: Reports: no symptoms. Hematologic/Endocrine: Reports: no symptoms. Immunologic/Allergic: Reports: no symptoms. All Other Systems: Reviewed and Negative (Delfina Mello) Physical Exam Physical Exam General Appearance: well developed/nourished, no apparent distress, alert, awake Head: atraumatic, normal appearance Eyes: Bilateral: normal appearance. Ears, Nose, Throat: hearing grossly normal Neck: normal inspection, supple, full range of motion Cardiovascular/Respiratory: no respiratory distress Back: normal inspection, normal range of motion Wrist Left: normal range of motion, normal inspection Wrist Right: normal range of motion, normal inspection Hand Left: subungual hematoma to nailbed of thumb with tenderness, tenderness to PIP of thumb without deformity, ROM intact Hand Right: normal inspection, normal range of motion Neurologic/Tendon: normal sensation, normal motor functions, normal tendon functions Skin: intact, normal color, warm/dry (Delfina Mello) Progress Differential Diagnosis: contusion, fracture, sprain, subungual hematoma Plan of Care: Use caudary to burn small hole in thumb nail. Subungual hematoma drained and patient notes some relief of his pain. I informed the patient that he may require repeat drainage if this hole gets blocked. The patient x-rays given his tenderness to PIP joint however patient defers. Patient placed in thumb splint and will return if necessary. The patient agrees with the plan of care. Discussed with Dr. Michaels who agrees with this plan. (Delfina Mello) Departure Departure Disposition: HOME OR SELF CARE Condition: Stable Clinical Impression Primary Impression: Subungual hematoma of left thumb Qualifiers: Encounter type: initial encounter Qualified Code: S60.112A - Contusion of left thumb with damage to nail, initial encounter Referrals: Errol MATHIS,Vasquez Munguia (PCP/Family) Additional Instructions: This may continue to drain over the next several days. If he notes increasing swelling or pain you may need further drainage here in the emergency department. He may wear finger splint for comfort. If you develop further thumb pain or swelling please return for further evaluation such as x-rays. Monitor for signs of infection such as redness, swelling. Please note that there might be incidental findings in your evaluation that are unrelated to the current emergency department visit. Please notify your primary care doctor about this emergency department visit in order to obtain and review all of the testing performed so that these incidental findings can be monitored as needed. If you had an x-ray performed, please understand that some fractures may not be seen on the initial set of x-rays. If your symptoms persist you might need a repeat set of x-rays to check for such a fracture. If you had a laceration evaluated, please understand that foreign bodies such as glass or wood may not be visible to the naked eye or on plain x-rays. If the wound becomes red, swollen, increasingly more painful or if there is any drainage from the wound, please have it reevaluated by a physician for the possibility of a retained foreign body. If you're unable to follow up as outlined in the discharge instructions please return to the emergency department. Thank you for choosing the [facility] Emergency Department for your care. It was a pleasure to serve you today. Departure Forms: Customer Survey General Discharge Information (Delfina Mello) PA/ADJUSTER PIANO [employer] Co-Sign Statement Statement: ED Attending supervision documentation- X I saw and evaluated the patient. I have also reviewed all the pertinent lab results and diagnostic results. I agree with the findings and the plan of care as documented in the PA's/ADJUSTER [employer]'s documentation. [] I have reviewed the ED Record and agree with the PA's/ADJUSTER [employer]'s documentation. [] Additions or exceptions (if any) to the PAs/ADJUSTER PIANO [employer]'s note and plan are summarized below: [] (Brando MATHIS,Sumeet)
== END 2018-03-12 13:48 ==
LOC: ERH 11:41
DX: S60.112A Contusion of left thumb with damage to nail, initial encounter (principal); W27.8XXA Contact with other nonpowered hand tool, initial encounter; Y92.009 Unspecified place in unspecified non-institutional (private) residence as the place of occurrence of the external cause; Y93.9 Activity, unspecified